=== PATIENT | female | born 1960 | race Caucasian/White ===

== ENCOUNTER 2018-12-02 09:54 | Emergency (ER) | payer OTHER ==
[2018-12-02] MEDS ORDERED: DEXAMETHASONE 10 MG/ML VIAL PO STA (11:18)
[2018-12-02] MEDS ORDERED: KETOROLAC 60 MG/2 ML VIAL IM STA (11:18)
--- NOTE | 2018-12-02 11:21 | ED Physician Documentation ---
PD HPI BACK PAIN - Stated complaint Stated Complaint: BACK PX - Chief complaint Chief Complaint: Back Pain - History obtained from History obtained from: Patient, Family - History of Present Illness Timing - onset: How many days ago (10) Timing - duration: Days (10) Timing - details: Gradual onset, Still present Location: Lower Quality: Pain, Spasm, Sharp, Similar to prior episodes Associated symptoms: Numbness. No: Fever, Weakness, Incontinent of urine, Unable to urinate, Hematuria, Incontinent of stool Improves with: Rest, Ice, Meds Worsened by: Movement Contributing factors: Other (work out equipment change) Similar symptoms before: Diagnosis (sciatica) Recently seen: Not recently seen - Additional information Additional information: 58-year-old female with a history of sciatica has developed pain in her lower back with radiation down both legs for the past 10 days. She has been using some ice and stretch and some ibuprofen. She has worsening of the pain now and is unable to move. Review of Systems Constitutional: denies: Fever Eyes: denies: Decreased vision Ears: denies: Ear pain Nose: denies: Congestion Throat: denies: Sore throat Cardiac: denies: Chest pain / pressure, Palpitations Respiratory: denies: Dyspnea, Cough GI: denies: Abdominal Pain, Nausea, Vomiting : denies: Dysuria, Frequency Skin: denies: Rash Musculoskeletal: reports: Back pain. denies: Neck pain, Extremity pain PD PAST MEDICAL HISTORY - Past Medical History Past Medical History: Yes Musculoskeletal: Chronic back pain - Past Surgical History Past Surgical History: No - Present Medications Home Medications: Ambulatory Orders Medication Instructions Recorded Confirmed Cyclobenzaprine [Flexeril] 10 mg PO TID PRN #20 tablet 12/02/18 Hydrocodone/Acetaminophen 1 - 2 each PO Q6H PRN #14 tablet 12/02/18 [Hydrocodon-Acetaminophen 5-325] - Allergies Allergies/Adverse Reactions: Allergies Allergy/AdvReac Type Severity Reaction Status Date / Time og peppers Allergy Unknown Uncoded 12/02/18 10:19 - Social History Does the pt smoke?: No Smoking Status: Never smoker PD ED PE NORMAL - Vitals Vital signs reviewed: Yes (hypertensive diastolic ) - General General: Alert and oriented X 3, Well developed/nourished, Other (Environmental Aid tone and flattened affect belie pain.) - HEENT HEENT: Atraumatic, PERRL, EOMI - Respiratory Respiratory: No respiratory distress - Back Back: No CVA TTP, No spinal TTP, Other (Paraspinous muscle tenderness to the lower lumbar spine bilaterally radiating into the sciatic notch.) - Derm Derm: Normal color, Warm and dry, No rash - Extremities Extremities: No deformity, Normal ROM s pain, No edema - Neuro Neuro: Alert and oriented X 3, 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, No motor deficit, No sensory deficit, Normal speech Eye Opening: Spontaneous Motor: Obeys Commands Verbal: Oriented GCS Score: 15 - Psych Psych: Normal mood, Normal affect Results - Vitals Vitals: Vital Signs - 24 hr 12/02/18 10:19 Temperature 36.4 C L Heart Rate 83 Respiratory 16 Rate Blood Pressure 119/98 H O2 Saturation 100 Oxygen O2 Source Room air PD MEDICAL DECISION MAKING - ED course Complexity details: considered differential, d/w patient, d/w family ED course: 58-year-old female with sciatica is administered dexamethasone 10 mg orally and Toradol 60 mg IM we will place her on some Vicodin and Flexeril. Departure - Departure Disposition: 01 Home, Self Care Clinical Impression: Sciatica Qualifiers: Laterality: bilateral Qualified Code(s): M54.31 - Sciatica, right side; M54.32 - Sciatica, left side Condition: Stable Instructions: ED Sciatica Follow-Up: Marlo Ramsay MD [Provider Admit Priv/Credential] - Prescriptions: Cyclobenzaprine [Flexeril] 10 mg PO TID PRN #20 tablet PRN Reason: Spasms Hydrocodone/Acetaminophen [Hydrocodon-Acetaminophen 5-325] 1 - 2 each PO Q6H PRN #14 tablet PRN Reason: pain
[2018-12-02 12:00] VITALS: BP 104/82
== END 2018-12-02 12:00 | disposition home or self-care (01) ==
LOC: ED 09:54
DX: M54.31 Sciatica, right side (principal); G89.29 Other chronic pain
CPT/HCPCS: 96372; 99283

== ENCOUNTER 2019-07-31 16:04 | Outpatient (CLI) | payer OTHER | END 2019-07-31 16:05 | disposition home or self-care (01) | LOC: DI 16:04 | DX: Z12.31 Encounter for screening mammogram for malignant neoplasm of breast (principal) | CPT/HCPCS: 77063; 77067 ==

== ENCOUNTER 2021-06-02 06:26 | Day surgery (SDC) | payer OTHER ==
[2021-06-02] MEDS ORDERED: LACTATED RINGERS 1,000 ML IV ONE (06:41)
[2021-06-02] MEDS ORDERED: fentaNYL 250 MCG/5 ML VIAL ONE (07:22)
[2021-06-02] MEDS ORDERED: MIDAZOLAM 2 MG/2 ML VIAL ONE ×2 (07:22→07:23)
[2021-06-02] MEDS ORDERED: LACTATED RINGERS 600 ML IV ONE (07:50)
[2021-06-02 09:08] VITALS: BP 107/63
== END 2021-06-02 06:27 | disposition home or self-care (01) ==
LOC: SDS 06:26
PROVIDERS: ATTEND Surgery
PROC: 0DBK8ZZ Excision of Ascending Colon, Via Natural or Artificial Opening Endoscopic (ICD-10-PCS; principal; 2021-06-02 07:30)
DX: Z12.11 Encounter for screening for malignant neoplasm of colon (principal); D12.2 Benign neoplasm of ascending colon; K64.8 Other hemorrhoids
CPT/HCPCS: 45380; J3010; J7120

== ENCOUNTER 2021-11-23 08:00 | Outpatient (CLI) | payer OTHER | END 2021-11-23 23:59 | LOC: LAB 08:00 | PROVIDERS: ATTEND Nurse Practitioner | DX: J06.9 Acute upper respiratory infection, unspecified (principal); Z20.822 Contact with and (suspected) exposure to COVID-19 ==

== ENCOUNTER 2022-06-02 12:24 | Outpatient (CLI) | payer OTHER ==
--- NOTE | 2022-06-03 14:10 | Ultrasound Report ---
LIMITED ULTRASOUND OF LEFT BREAST: 06/02/2022 CLINICAL: Patient returns today to evaluate a focal asymmetry in the left breast. Palpable left breas t lump. Comparison is made to exams dated: 06/02/2022 mammogram, 07/31/2019 mammogram - [facility], and 04/29/2016 mammogram - [facility]. Color flow ultrasound of the left breast 7 o'clock region was performed. Nunez scale images of the r eal-time examination were reviewed. No significant abnormalities were seen sonographically in the left breast. Specifically, no finding to correspond to the patient's palpable abnormality. IMPRESSION: NEGATIVE There is no sonographic correlate to the patient's palpable abnormality and no evidence of malignancy . Return to annual mammogram screening schedule is recommended. Findings and recommendations were conveyed to the patient at time of exam. This exam was interpreted at Station ID: [id number]. Electronically Signed By: Emilee medina/:06/02/2022 16:14:25 Ultrasound BI-RADS: 1 Negative BI-RADS CATEGORY: (1) - 1 RECOMMENDATION: (ANNUAL) - Recommend routine annual screening mammography. [id number] return to screening LATERALITY: (B)
--- NOTE | 2022-06-03 14:10 | Mammography Report ---
BILATERAL DIGITAL DIAGNOSTIC MAMMOGRAM 3D/2D: 06/02/2022 CLINICAL: Palpable left breast lump; sometimes tenderness. Comparison is made to exams dated: 07/31/2019 mammogram - [facility] and 04/29/2016 mammogram - [facility]. The tissue of both breasts is heterogeneously dense. Thi s may lower the sensitivity of mammography. No significant masses, calcifications, or other findings are seen in either breast. Specifically, no finding to correspond to the patient's palpable abnormality. Mammograms are otherwise stable. IMPRESSION: INCOMPLETE: NEEDS ADDITIONAL IMAGING EVALUATION There is no abnormality seen in the left breast to correspond with the palpable abnormality and pain at 7 o'clock which likely represent normal fibroglandular tissue. Ultrasound is recommended for full evaluation of this area. This was performed immediately following this exam. Based on Tyrer-Cuzick model (a risk assessment model), the patient's lifetime risk is 24.1% and her 1 0 year risk is 10.6%. If a patient has an elevated risk, a more comprehensive evaluation should be co nsidered and/or a referral to a genetic counselor. The [place] [employer], [place] [employer], and NCCN Guidelines advise the consideration of Breast MRI as an adjunct to screening mammo graphy in patients whose "Lifetime risk to develop breast cancer" is 20% or higher. This exam was interpreted at Station ID: [id number]. NOTE: For mammograms, a report in lay terms will be sent to the patient. Approximately 15% of breast malignancies will not be visualized mammographically. In the management of a palpable breast mass, a negative mammogram must not discourage biopsy of a clinically suspicious lesion. Electronically Signed By: Emilee medina/:06/02/2022 13:21:08 ACR BI-RADS Category 0: Incomplete 3340F PARENCHYMAL PATTERN: (D) - The breast(s) demonstrate(s) heterogeneously dense fibroglandular paralaina doss. BI-RADS CATEGORY: (0) - 0 Ultrasound [id number] Immediate follow-up LATERALITY: (B)
== END 2022-06-02 12:25 | disposition home or self-care (01) ==
LOC: DI 12:24
PROVIDERS: ATTEND Family Medicine
DX: N64.4 Mastodynia (principal); N63.24 Unspecified lump in the left breast, lower inner quadrant

== ENCOUNTER 2022-10-04 10:45 | Outpatient (CLI) | payer OTHER ==
[2022-10-04 11:36] VITALS: BP 118/72
--- NOTE | 2022-10-04 11:36 | SLEEP CARE CONSULTATION ---
Information from patient questionnaire entered by Pete Bullock. I have reviewed and concur with the information entered by Pete Bullock. This document represents the service I personally performed and the decisions made by me, Sapphire Vicente ARNP. History of Present Illness Service Date and Time: 10/04/2022 1045 Reason for Visit: New patient Chief Complaint: reports: Insomnia, Unrefreshed sleep, Snoring, Observed pauses in breathing, Frequent awakenings at night Date of Onset: 6 MONTHS worse; has been going on for years Usual bedtime: 10 PM - 12 AM Time it takes to fall asleep: 1-2 HRS Snores at night: Yes Observed to quit breathing while asleep: Yes Sleeps alone due to snoring: No Number of times waking at night: 2-5 Reasons for waking at night: reports: Snoring, Pain, Bathroom, Other (UNKNOWN REASONS DOG, WIND, NIGHT COUGHING ). denies: Choking, Gasping for air Toss, Turn, or Twitch while sleeping: No Recalls having dreams: Yes Usually gets out of bed at: 8-10 AM Feels refreshed in the morning: No Morning headache: Yes (5 days a week; RESOLVES 2-5 HRS ) Sleepy or fatigued during the day: Yes Ever fallen asleep while driving: No Takes day naps: Yes (not as much lately but has low energy) Dreams during day naps: No Prior sleep studies: No Additional HPI information: I had the pleasure of seeing VANDANA STUART today regarding the possibility of her having a sleep disorder. Her current complaints are insomnia, snoring, unrefreshed sleep, observed pauses in breathing and frequent night awakenings. She states she can take up to 1-2 hours to fall asleep and then will wake up several times a night. She has been told that she snores loudly and consistantly during the night by her . He has also noted her having pauses in breathing. She states she rarely wakes up feeling refreshed. Her snoring has gotten worse in the last 6 months. She feels low energy through the day most days without motivation to be very active. She does a lot of reading. She will wake up with frontal headaches about 5 times out of the week. Some days they last for up to 4 hours. She had two head injuries as a child. She occasionally has "blanks" in her memory. 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 Patient is and lives in [place]. Have you smoked in the past 12 months: No Alcohol use: Yes Alcohol amount and frequency: 1-2 DRINKS 3-5 X WEEKLY Caffeine use: Yes Caffeine amount and frequency: 2-4DRINKS DAILY Family History Family history of sleep disordered breathing: Yes Family Hx Sleep Apnea: Mother: Snoring, Father: Snoring Allergies and Home Medications Known drug allergies: Yes (AMOXICILLIAN - sensitivity) Drug allergies reviewed: Yes Home medication list reviewed: Yes Allergy and home medication list: Medication: Escitalopram 10 mg nightly Review of Systems Weight gain over past 5 years: 30 Weight loss over past 5 years: 20 Cardiovascular: denies: high blood pressure Respiratory: reports: shortness of breath Gastrointestinal: denies: heartburn Neurological: reports: head trauma (two when a child). denies: headaches Psychiatric: reports: anxiety, depression Ear/Nose/Throat: reports: sinus problems, dry mouth/throat, wisdom teeth removed, other (TEETH COTTON PULLER ) Immunologic: reports: sneezing, allergies to food or environment (IYER PEPPERS), other (RUNNY EYES) Physical Exam Vital signs obtained and entered by: PETE Cook MA Blood Pressure: 118/72 (LEFT ARM) Cuff size: regular (118) Heart Rate: 79 O2 Saturation: 96 Height: 5 ft 9 in Weight: 195 lb 3.2 oz Body Mass Index: 28.8 BMI Classification: Overweight Neck circumference: 15.5 Nostrils: patent to airflow Mouth and throat: narrow oropharynx Soft palate: long Hard palate: normal Uvula: normal Uvula visualization: 25% Mallampati Class III Tongue: enlarged in size with teeth peterson on lateral edges Tonsils: small Neck: normal w/o lymphadenopathy or thyromegaly Heart: regular rate and rhythm Lungs: clear bilaterally Impression and Plan 1. Suspected Obstructive Sleep Apnea-Hypopnea Syndrome, as suggested by a his tory of loud and irregular snoring, observed cessation of breath while asleep, morning headache, frequent awakening during the night, unrefreshed sleep, cognitive impairment, and excessive daytime sleepiness. Narrow oropharynx and obesity are common predisposing factors for obstructive sleep apnea-hypopnea syndrome. I recommend proceeding to polysomnography to confirm the diagnosis and to assess severity. If the patient has significant sleep disordered breathing, a manual CPAP titration study will also be performed to find the optimal treatment pressure. I informed the patient of what the sleep studies involve and after some discussion, obtained agreement to proceed. The pathophysiology of obstructive sleep apnea-hypopnea syndrome was discussed with the patient and health risks of cardiovascular and cerebrovascular disease if not treated. 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 Patient agreed to plan. * Schedule polysomnography * Avoid long distance driving or driving when feeling sleepy. * Avoid alcohol, sedative and muscle relaxant around bedtime. * Attempt to lose weight. * Review instructions provided by trained office staff on how to prepare for the sleep study. * Return for follow-up after sleep study completed. Counseling Topics: Weight loss health impact Visit Type: In Office Time Spent with Patient (minutes): 32 Provider Statement: I spent 100% of the Face to Face Visit with the patient with greater than 50% spent counseling the patient and coordination of care.
== END 2022-10-04 10:46 | disposition home or self-care (01) ==
LOC: SC 10:45
PROVIDERS: ATTEND Nurse Practitioner Family
DX: G47.10 Hypersomnia, unspecified (principal); R41.89 Other symptoms and signs involving cognitive functions and awareness; G47.8 Other sleep disorders; R51.9 Headache, unspecified; R06.81 Apnea, not elsewhere classified; R06.83 Snoring
CPT/HCPCS: 99203; 99212

== ENCOUNTER 2022-10-12 20:41 | Outpatient (CLI) | payer OTHER | END 2022-10-12 20:42 | disposition home or self-care (01) | LOC: SC 20:41 | PROVIDERS: ATTEND Nurse Practitioner Family | DX: G47.61 Periodic limb movement disorder (principal); R06.83 Snoring | CPT/HCPCS: 95810 ==

== ENCOUNTER 2022-10-25 14:51 | Outpatient (CLI) | payer OTHER ==
--- NOTE | 2022-10-25 14:32 | SLEEP CARE CONSULTATION ---
Information from patient questionnaire entered by Kanchan Bullock. I have reviewed and concur with the information entered by Kanchan Bullock. This document represents the service I personally performed and the decisions made by , Sapphire Vicente ARNP. History of Present Illness Service Date and Time: 10/25/2022 1400 Initial [place] Sleepiness Scale score: 9 (10/04/2022) Current [place] Sleepiness Scale score: 9 (10/25/22) Additional HPI information: VANDANA STUART returns via video telehealth visit for follow up and results of the recently performed polysomnography. The patient was informed of the following findings: No significant sleep disordered breathing with an average AHI of 3.0 and godfrey oxygen saturation of 91%. Patient did not sleep supine during the study so sleep disordered breathing sleeping supine cannot be ruled out. I explained the pathophysiology behind obstructive sleep apnea. Patient does not have sleep apnea and was advised how weight gain could increase the risk of developing sleep apnea in the future. I strongly encouraged the patient to lose weight. Patient has loud snoring. Snoring can be reduced by weight loss. Weight loss is best achieved with diet consult. Patient instructed to contact PCP for referral. Snoring can also be treated with an oral appliance from a dentist. Advised to check insurance coverage. In addition, an ENT evaluation can be do to see if other treatment is indicated. Patient counseled not drink alcohol less than 4 hours before bedtime as it can increase snoring and apnea. Patient was cautioned about risks of drowsy driving until sleepiness symptoms resolve. Patient denies drowsy driving. Sleep Study - Results Type of Sleep Study: Polysomnography (COMPLETED 10/12/22) Prior sleep studies: No Polysomnography/Home Sleep Study results: IMPRESSION: The quality of the study is good. The patient had reduced sleep efficiency due to a prolonged awakening in the first half of the night. The sleep architecture was also normal. Respiratory monitoring showed no significant sleep disordered breathing (AHI = 3.0) or hypoxia (godfrey oxygen saturation of 91%). The patient did not sleep supine during this study. Snore was loud in intensity. There was mild periodic leg movement of sleep not associated with sleep fragmentation. Cardiac rhythm was normal sinus rhythm without significant arrhythmia. No abnormal behavior (parasomnia) observed during the night. CONCLUSIONS and RECOMMENDATIONS: 1. Periodic leg movement (ICD G47.61), mild, treatment may be indicated. Clinical correlation advised. 2. Primary Snore (ICD-10 R06.83), loud, but no significant sleep disordered breathing. However, because the patient did not sleep supine during this study, significant sleep disordered breathing during supine sleep cannot be ruled out. Allergies and Home Medications Drug allergies reviewed: Yes (NKDA) Home medication list reviewed: Yes (no changes) Review of Systems Review of systems same as previous: Yes (no changes) Physical Exam Vital signs obtained and entered by: VIA PHONE Height: 5 ft 9 in (PER PT) Weight: 186 lb (PER PT) Body Mass Index: 27.4 BMI Classification: Overweight Impression and Plan 1. Snoring but no significant sleep disordered breathing. Patient advised that often weight loss will reduce snoring as well as apnea risk. An oral appliance can also be used for snoring. This would require a dental consultation. Patient cautioned not to use other online appliances as can cause bite issues. A list of accredited dentists in [facility] and one local dentist who makes oral appliances is available in our office. Patient is advised to check if insurance will cover. An ENT consult can also be helpful to determine if any other treatment is an optio n. 2. Periodic limb movement, mild, that did not fragment patients sleep. Periodic limb movement of sleep (PLMS) is characterized by episodes of repetitive limb movements that occur during sleep and usually involve the lower limbs. The etiology is unknown. Caffeine can aggravate PLMS and should be avoided. Sleep hygiene methods can also improve sleep as well as lifestyle changes such as regular exercise. Patient was advised that no treatment is needed at this time. If symptoms increase, then further evaluation is indicated. * Attempt to lose weight * Avoid alcohol consumption near bedtime * The patient is cautioned about driving until sleepiness is completely resolved. * Return as needed for follow up. Counseling Topics: Sleeping position, Weight loss health impact Visit Type: Telehealth Video Video Type: Doximity Patient Location: Home Other Participants: Spouse/Significant Other Location of Provider: Office Patient agrees and consents to this telehealth visit type: Yes Patient agrees to have their insurance billed: Yes Time Spent with Patient (minutes): 20 Provider Statement: I spent 100% of the Telehealth Video Call with the patient with greater than 50% spent counseling the patient and coordination of care.
== END 2022-10-25 14:52 | disposition home or self-care (01) ==
LOC: SC 14:51
PROVIDERS: ATTEND Nurse Practitioner Family
DX: R06.83 Snoring (principal); G47.61 Periodic limb movement disorder; E66.3 Overweight; Z68.27 Body mass index [BMI] 27.0-27.9, adult

== ENCOUNTER 2024-02-02 13:00 | Outpatient (CLI) | payer OTHER ==
--- NOTE | 2024-02-05 09:06 | Mammography Report ---
BILATERAL DIGITAL SCREENING MAMMOGRAM 3D/2D: 02/02/2024 CLINICAL: Routine screening. Comparison is made to exams dated: 06/02/2022 mammogram, 07/31/2019 mammogram - [facility], and [facility]29/[facility]. Both breasts are heterogeneously dense, which may obscure small masses (category c / 51-75% glandular tissue). No significant masses, calcifications, or other findings are seen in either breast. There has been no significant interval change. IMPRESSION: NEGATIVE There is no mammographic evidence of malignancy. A 1 year screening mammogram is recommended. Based on Tyrer-Cuzick model (a risk assessment model), the patient's lifetime risk is 22.9% and her 1 0 year risk is 10.7%. If a patient has an elevated risk, a more comprehensive evaluation should be co nsidered and/or a referral to a genetic counselor. The [place] [employer], [place] [employer], and NCCN Guidelines advise the consideration of Breast MRI as an adjunct to screening mammo graphy in patients whose "Lifetime risk to develop breast cancer" is 20% or higher. This exam was interpreted at Station ID: [id number]. NOTE: For mammograms, a report in lay terms will be sent to the patient. Approximately 15% of breast malignancies will not be visualized mammographically. In the management of a palpable breast mass, a negative mammogram must not discourage biopsy of a clinically suspicious lesion. Electronically Signed By: Emilee medina/penrad:02/02/2024 16:53:51 ACR BI-RADS Category 1: Negative 3341F PARENCHYMAL PATTERN: (D) - The breast(s) demonstrate(s) heterogeneously dense fibroglandular parenchy ma. BI-RADS CATEGORY: (1) - 1 RECOMMENDATION: (ANNUAL) - Recommend routine annual screening mammography. [id number] 1 year screening LATERALITY: (B)
== END 2024-02-02 13:01 | disposition home or self-care (01) ==
LOC: DI 13:00
PROVIDERS: ATTEND Student in an Organized Health Care Education/Training Program
DX: Z12.31 Encounter for screening mammogram for malignant neoplasm of breast (principal); R92.333 Mammographic heterogeneous density, bilateral breasts